=== PATIENT | female | born 2000 | race Hispanic/Latino ===

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

== ENCOUNTER 2021-01-08 21:09 | Emergency (ER) | payer OTHER ==
[~2021-01-08] VITALS: Ht 157.5 cm; Wt 53.1 kg
[~2021-01-08 21:09] MED LIST changes: +ESCITALOPRAM OX10 MG PO
== END 2021-01-09 01:25 | disposition home or self-care (01) ==
LOC: ED 21:09
DX: K42.9 Umbilical hernia without obstruction or gangrene (principal); K59.00 Constipation, unspecified; M41.9 Scoliosis, unspecified; Z79.899 Other long term (current) drug therapy
CPT/HCPCS: 74018; 84703; 99284-25

== ENCOUNTER 2022-02-20 14:48 | Emergency (ER) | payer OTHER ==
[~2022-02-20] VITALS: Ht 157.5 cm; Wt 62.2 kg
--- NOTE | 2022-02-20 20:07 | EKG ---
[facility] [address] [facility] [place], [place] [address] Signed Normal sinus rhythm Normal ECG When compared with ECG of 05-NOV-2019 15:35, No significant change was found Confirmed by MADHURI TOMAS MD ([id number]) on 02/20/2022 8:07:26 PM Electronically Signed By: MADHURI TOMAS MD 02/20/222006 PATIENT NAME: SHU HERNANDEZ MARIANO Electrocardiogram DATE OF : [birth year] PHYSICIAN: MADHURI TOMAS MD REPORT #: [id number] REPORT IS CONFIDENTIAL AND NOT TO BE RELEASED WITHOUT AUTHORIZATION
== END 2022-02-20 18:52 | disposition home or self-care (01) ==
LOC: ED 14:48
DX: O99.613 Diseases of the digestive system complicating pregnancy, third trimester (principal); K21.9 Gastro-esophageal reflux disease without esophagitis; Z20.822 Contact with and (suspected) exposure to COVID-19; Z3A.35 35 weeks gestation of pregnancy
CPT/HCPCS: 87502; 93005; 93010; 99284-25; U0003

== ENCOUNTER 2022-03-10 03:29 | Inpatient (IN) | payer OTHER ==
--- NOTE | 2022-03-11 10:09 | PR ---
[facility] [address] [facility] [place], [place] [address] Signed PP Progress Notes Datetime Report Generated by CPN: 03/11/2022 10:09 SUBJECTIVE: [id number] Pain: Within Normal Limits Nausea/Vomiting: Denies Vital Signs: [id number] Vital Signs: Reviewed; Within Normal Limits Cardiovascular: Not Done Respiratory: Not Done Abdomen/Uterus: Abnormal Lochia: Normal Vulva/Perineum: Not Done Breasts: Not Done CVA Tenderness: Not Done Extremities: Normal Incision: Not Applicable Progress: Abnormal Exam Comments: Fundus firm, NT @ U-2. H/H 8.4/25.9, WBC 17.9, plat 124k IMPRESSION/PLAN/PROCEDURES: [id number] Impression: Normal Progression Other Impression: anemia Plan: Consult Progress Notes: Doing well and tolerating her anemia so far. Signing Physician: Lois Dutton MD Copies: ~ *Electronically Signed* 03/11/22 1009 LOIS DUTTON MD PATIENT NAME: SHU HERNANDEZ PROGRESS NOTE DATE OF : 01 PHYSICIAN: LOIS DUTTON MD RPT #: [id number] REPORT IS CONFIDENTIAL AND NOT TO BE RELEASED WITHOUT AUTHORIZATION
--- NOTE | 2022-03-12 10:35 | PR ---
[facility] [address] [facility] [place], [place] [address] Signed PP Progress Notes Datetime Report Generated by CPI[employer]: 03/12/2022 10:34 SUBJECTIVE: [id number] Pain: Within Normal Limits Nausea/Vomiting: Denies Bowel Movement: Yes Vital Signs: [id number] Vital Signs: Reviewed; Within Normal Limits Cardiovascular: Not Done Respiratory: Not Done Abdomen/Uterus: Abnormal Lochia: Normal Vulva/Perineum: Not Done Breasts: Not Done CVA Tenderness: Not Done Extremities: Normal Incision: Not Applicable Progress: Normal Exam Comments: Fundus firm, NT @ U-1 IMPRESSION/PLAN/PROCEDURES: [id number] Impression: Normal Progression Other Impression: anemia Plan: Discharge Procedures: None Progress Notes: Doing well. She is ready for D/C. Signing Physician: Lois Dutton MD Copies: ~ *Electronically Signed* 03/12/22 1034 LOIS DUTTON MD PATIENT NAME: SHU HERNANDEZ PROGRESS NOTE DATE OF : 01 PHYSICIAN: LOIS DUTTON MD RPT #: [id number] REPORT IS CONFIDENTIAL AND NOT TO BE RELEASED WITHOUT AUTHORIZATION
== END 2022-03-12 12:14 | disposition home or self-care (01) | DRG 768 ==
LOC: FBCO 03:29 → FBC 03:53
PROVIDERS: ADMIT Obstetrics & Gynecology; ATTEND Obstetrics & Gynecology
PROC: 10E0XZZ Delivery of Products of Conception, External Approach (ICD-10-PCS; principal; 2022-03-10)
PROC: 0DQR0ZZ Repair Anal Sphincter, Open Approach (ICD-10-PCS; 2022-03-10)
PROC: 00HU33Z Insertion of Infusion Device into Spinal Canal, Percutaneous Approach (ICD-10-PCS; 2022-03-10)
PROC: 3E0R3BZ Introduction of Anesthetic Agent into Spinal Canal, Percutaneous Approach (ICD-10-PCS; 2022-03-10)
PROC: 10907ZC Drainage of Amniotic Fluid, Therapeutic from Products of Conception, Via Natural or Artificial Opening (ICD-10-PCS; 2022-03-10)
DX: O99.344 Other mental disorders complicating childbirth (principal); Z37.0 Single live birth; O99.324 Drug use complicating childbirth; O70.20 Third degree perineal laceration during delivery, unspecified; F41.9 Anxiety disorder, unspecified; F32.A Depression, unspecified; O99.03 Anemia complicating the puerperium; F12.90 Cannabis use, unspecified, uncomplicated; D64.9 Anemia, unspecified; Z67.10 Type A blood, Rh positive; Z20.822 Contact with and (suspected) exposure to COVID-19; Z3A.38 38 weeks gestation of pregnancy
CPT/HCPCS: 36415; 85027; 86850; 86900; 86901; 87502; A9270; C9803; J2590; J2795; J3010; J7121; U0003